=== PATIENT | male | born 1960 | race Caucasian/White ===

== ENCOUNTER 2023-02-02 12:50 | Emergency (ER) | payer MEDICARE, MEDICAID, SELFPAY ==
[2023-02-02 12:57] VITALS: BP 122/76; PULSE 85; RESP 22; TEMP 36.8; O2SAT 95; BMI 41.2
--- NOTE | 2023-02-02 13:09 | XR_ITS ---
The [address] [address] Patient Name: MATILDE ADAN MRN: [id number] date: 1960 Sex: M Assigned Patient Location: ER Current Patient Location: ER Accession/Order Number: [id number] Exam Date: 02/02/2023 13:15 Report Date: 02/02/2023 13:51 At the request of: ITALO DANIEL Procedure: XR knee RT 3V EXAM: XR knee RT 3V HISTORY: twisted, pain COMPARISON: None. TECHNIQUE: 4 images of the right knee FINDINGS: There is no acute fracture or dislocation. There is severe tricompartmental osteoarthritis characterized by marginal osteophyte, joint space narrowing and subchondral sclerosis and cyst formation. No knee joint effusion. The soft tissue is unremarkable. XR/XR knee RT 3V IMPRESSION: No acute fracture. Electronically authenticated by: JAZMIN MILTON Date: 02/02/2023 13:51
--- NOTE | 2023-02-02 13:10 | ED.LOWEXI1 ---
HPI - Extremity Injury (Lower) General Chief Complaint: Extremity Injury, Lower Stated Complaint: FALL- R LEG INJURY Time Seen by Provider: 02/02/23 13:04 Source: patient Mode of arrival: Wheelchair History of Present Illness HPI Narrative: 62-year-old male presents for right knee pain. He was walking and he twisted his knee, he did not fall. He points to the anterior part of his right knee. His hip and ankle don't hurt and neither does the contralateral knee. This happened today. Related Data Home Medications Medication Instructions Recorded Confirmed ascorbic acid (vitamin C) 500 mg 500 mg PO DAILY 02/02/23 02/02/23 tablet (Vitamin C) bupropion HCl 200 mg tablet,12 hr 200 mg PO BID 02/02/23 02/02/23 sustained-release calcium citrate 250 mg PO DAILY 02/02/23 02/02/23 cholecalciferol (vitamin D3) 50 2,000 unit PO DAILY 02/02/23 02/02/23 mcg (2,000 unit) capsule (Vitamin D3) ferrous sulfate 325 mg (65 mg 325 mg PO DAILY 02/02/23 02/02/23 iron) tablet (FeroSul) furosemide 20 mg tablet 20 mg PO DAILY 02/02/23 02/02/23 loratadine 10 mg tablet (Allergy 10 mg PO DAILY 02/02/23 02/02/23 Relief (loratadine)) multivitamin 1 tab PO DAILY 02/02/23 02/02/23 multivitamin-ferrous 1 tab PO DAILY 02/02/23 02/02/23 fumarate-folic acid 18 mg-400 mcg tablet (Tab-A-Jose Multivitamin w-iron) Previous Rx's Medication Instructions Recorded ibuprofen 800 mg tablet 800 mg PO Q8H PRN pain #20 tabs 02/02/23 Allergies Allergy/AdvReac Type Severity Reaction Status Date / Time No Known Drug Allergies Allergy Verified 02/02/23 13:02 Review of Systems ROS Narrative A ten point review of systems is negative except as noted above. Exam Narrative Exam Narrative: Nurses note and vital signs reviewed and patient is not hypoxic. General: The patient appears well and in no apparent distress. Patient is resting comfortably on cart. Skin: Warm, dry, no pallor noted. There is no rash noted. Head: Normocephalic, atraumatic Eye: Normal conjunctiva, no drainage Ears, Nose, Mouth, and Throat: oral mucosa is moist. Nares patent. Cardiovascular: Regular Rate and Rhythm Respiratory: Patient is in no distress, no accessory muscle use, lungs are clear to auscultation, no wheezing, rales or rhonchi Back: non-tender GI: soft and nontender Musculoskeletal: the right knee does not appear to be swollen compared to the contralateral. There is no deformity or erythema. No bruising or rash. No tenderness in the ankle or hip. Neurological: awake and alert Psychiatric: Cooperative Constitutional Vital Signs, click to edit/add: Last Vital Signs Temp 98.2 F 02/02/23 12:57 Pulse 85 02/02/23 12:57 Resp 22 02/02/23 12:57 BP 122/76 02/02/23 12:57 Pulse Ox 95 02/02/23 12:57 O2 Del Method Room Air 02/02/23 12:57 Course Vital Signs Vital signs: Vital Signs Temperature 98.2 F 02/02/23 12:57 Pulse Rate 85 02/02/23 12:57 Respiratory Rate 02/02/23 12:57 Blood Pressure 122/76 02/02/23 12:57 Pulse Oximetry 95 02/02/23 12:57 Oxygen Delivery Method Room Air 02/02/23 12:57 Temperature 98.2 F 02/02/23 12:57 Pulse Rate 85 02/02/23 12:57 Respiratory Rate 02/02/23 12:57 Blood Pressure 122/76 02/02/23 12:57 Pulse Oximetry 95 02/02/23 12:57 Oxygen Delivery Method Room Air 02/02/23 12:57 MDM - Extremity Injury (Lower) MDM Narrative Medical decision making narrative: x-ray per radiologist shows no acute findings. Flako wrap applied and application checked by me and found to be appropriate, he is neurovascularly intact. He is prescribed ibuprofen and referred to orthopedics if there is no improvement. Treatment diagnosis and follow-up were discussed with the patient. Differential Diagnosis Differential diagnosis: Likely acute internal derangement of knee and other (effusion, fracture) Imaging Data right knee x-ray: Radiologist's impression: Procedure: XR knee RT 3V EXAM: XR knee RT 3V HISTORY: twisted, pain COMPARISON: None. TECHNIQUE: 4 images of the right knee FINDINGS: There is no acute fracture or dislocation. There is severe tricompartmental osteoarthritis characterized by marginal osteophyte, joint space narrowing and subchondral sclerosis and cyst formation. No knee joint effusion. The soft tissue is unremarkable. IMPRESSION: No acute fracture. Electronically authenticated by: JAZMIN MILTON Date: 02/02/2023 13:51 Discharge Plan Discharge Chief Complaint: Extremity Injury, Lower Clinical Impression: Knee sprain Patient Disposition: Home, Self-Care Time of Disposition Decision: 14:01 Condition: Good Mode of Transportation: Private Vehicle Prescriptions / Home Meds: New ibuprofen 800 mg tablet 800 mg PO Q8H PRN (Reason: pain) Qty: 20 0RF No Action multivitamin Tablet 1 tab PO DAILY ascorbic acid (vitamin C) [Vitamin C] 500 mg tablet 500 mg PO DAILY ferrous sulfate [FeroSul] 325 mg (65 mg iron) tablet 325 mg PO DAILY furosemide 20 mg tablet 20 mg PO DAILY loratadine [Allergy Relief (loratadine)] 10 mg tablet 10 mg PO DAILY bupropion HCl 200 mg tablet sustained-release 12 hr 200 mg PO BID calcium citrate 250 mg calcium tablet 250 mg PO DAILY cholecalciferol (vitamin D3) [Vitamin D3] 50 mcg (2,000 unit) capsule 2,000 unit PO DAILY Tab-A-Jose Multivitamin w-iron 18-400 mg-mcg tablet 1 tab PO DAILY Instructions: Knee Sprain (ED), How to Use an Elastic Bandage (ED) Additional Instructions: Follow-up with Dr. Pascual if no improvement Stand Alone Forms: Portal Instructions Referrals: Gregg Tavarez MD [Primary Care Provider] - 1 week
== END 2023-02-02 14:20 | disposition home or self-care (01) ==
PROVIDERS: Emergency Provider Emergency Medicine; PCP Family Medicine
DX: S83.91XA Sprain of unspecified site of right knee, initial encounter (principal); X50.1XXA Overexertion from prolonged static or awkward postures, initial encounter
CPT/HCPCS: 73562; 99283